=== PATIENT | male | born 2005 | race Caucasian/White ===

== ENCOUNTER 2025-03-03 08:50 | Emergency (ER) | payer OTHER ==
[~2025-03-03] VITALS: Ht 182.9 cm; Wt 124.0 kg
[2025-03-03 09:12] VITALS: TEMP 97.6
--- NOTE | 2025-03-03 09:13 | Physician Documentation ---
History of Present Illness ~ Chief Complaint: Laceration Stated Complaint: PARTIAL FINGER AMPUTATION Time Seen by MD: 09:16 HPI 20-year-old male presents with left middle finger pain after getting his finger caught in a Winch while at work today. States he has a partial amputation ,but bleeding is controlled Day of Onset: Mar 03, 2025 Medication Reconciliation Allergies: Coded Allergies: No Known Allergies (Unverified , 03/03/25) Scheduled Cephalexin*Monohydrate* (Keflex*), 1 CAP PO QID Scheduled PRN Hydrocodone Bit/Acetaminophen 5/325 MG (Livingston 5/325 MG), 1 TAB PO Q6H PRN for pain Review of Systems All Other Systems at this time: Reviewed and Negative ROS As stated above in the HPI, otherwise all systems are reviewed and negative. Physical Exam Physical Exam General: Alert, no apparent distress. Extremities: left distal 3rd phalange amputation. Neurologic: Oriented x4. Psychiatric: Normal mood and affect. Skin: Normal color, warm and dry. No edema, no ecchymosis. Procedures Laceration/Wound Repair Laceration : Anesthesia: Lidocaine Prep: irrigated by physician Repaired: skin Suture Size/Type: 4-0 Number of Superficial Sutures: 8 Procedure Note rounger, was use to snip exposed bone on left 3rd phalynx sutured and irrigated . tollerated well. Progress Results/Orders Results/Orders Orders - JOSE ALEJANDRO ESCALERA [employer] Finger(S) (03/03/25 09:32) Laceration/I&D Tray Set Up (03/03/25 ) Completed Orders - JOSE ALEJANDRO ESCALERA [employer] Finger(S) (03/03/25 09:32) Hydrocodone/Apap 10/325 (Livingston 10/325mg (03/03/25 09:30) Morphine 4mg/Ml Inj. (Morphine Inj.) (03/03/25 09:50) Lidocaine 1% 30ml Vial (Xylocaine 1% Via (03/03/25 09:49) Tetanus/Pertuss/Diph Acell/Pf (Boostrix (03/03/25 10:30) Medications Received in ER Medications (Trade) Dose Ordered Sig/Ashutosh Route PRN Reason Start Time Stop Time Status Last Admin Dose Admin (Livingston 10/325mg tab) 1 tab ONCE ONCE PO 03/03/25 09:30 03/03/25 09:31 DC 03/03/25 09:54 1 TAB (morphine inj.) 4 mg ONCE ONCE IM 03/03/25 09:50 03/03/25 09:52 DC 03/03/25 10:02 4 MG (Boostrix vaccine syringe) 0.5 ml ONCE ONCE IMVAC 03/03/25 10:30 03/03/25 10:31 DC 03/03/25 11:04 0.5 ML Vital Signs 03/03/25 03/03/25 09:12 11:36 Temp 97.6 Pulse 79 85 Resp 18 16 B/P (MAP) 147/88 139/71 Pulse Ox 100 98 Medical Decision Making Findings I spoke to Dr. Curtis the on-call hand specialist: New line he advised to snip what is left of the amputation and use the rales your to snip the external exposed bone. And then to loosely suture the tip of the finger. Going to discharge him on antibiotics and have him follow up with Dr. Curtis in the outpatient setting Differential Dx:Considerations: Include: Abrasion, Avulsion, Contusion, Laceration, Fracture, Hematoma, Neurovascular injury, Retained foreign body, Other Departure Disposition: 01 HOME / SELF CARE / HOMELESS Impression: Primary Impression: Amputated finger Condition: Stable Discharge Instructions: Laceration Care, Adult, [id number] Referrals: NO PRIMARY CARE PROVIDER (PCP) LEXX CURTIS Jr., MD Prescriptions Hydrocodone Bit/Acetaminophen 5/325 MG (Livingston 5/325 MG) 5 Mg/325 Mg Tablet 1 TAB PO Q6H PRN for pain, #14 TAB Prov: JOSE ALEJANDRO ESCALERA NP 03/03/25 Cephalexin*Monohydrate* (Keflex*) 500 Mg Capsule 1 CAP PO QID, #40 CAP Prov: JOSE ALEJANDRO ESCALERA NP 03/03/25 Education Educated: Patient Educated regarding: diagnosis Signature Scribe Signature: e Attestation: Scribed for Jose Alejandro Escalera [employer] Worker by Jose Alejandro Corrigan NP . 03/03/25 11:17 JOSE ALEJANDRO ESCALERA NP Mar 03, 2025 09:13
--- NOTE | 2025-03-03 09:49 | RADIOLOGY REPORT ---
DI FINGER(S), INDICATION: injury,LEFT TECHNICAL DATA: Frontal view of the left hand and lateral and oblique views of the left long finger were obtained. COMPARISON: None FINDINGS: There is amputation of the distal aspect of the long finger. Acute comminuted intra-articular fracture through the proximal most aspect of the 3rd distal phalanx and the distal tuft. The amputated fragment overlies the ring finger. There is a deformity of the 2nd distal phalanx which may be chronic. Soft tissue swelling noted in the long finger. IMPRESSION: 1. Amputation of the distal aspect of the long finger with comminuted intra- articular fracture of the 3rd distal phalanx and fracture through the 3rd distal tuft.
[2025-03-03] MEDS: HYDROcodone/acetaminophen 10/325mg tab PO ONE (09:54)
[2025-03-03] MEDS: morphine 4 MG/ML inj SYRINge IM ONE (10:02)
[2025-03-03] MEDS: LIDOcaine 1% 30ml preserv. free vial SQ STA (10:27)
[2025-03-03] MEDS: TETanus/Pertussis (Acell)/Diphther VAC/PF (Tdap-Adult) 0.5ml syringe IMVAC ONE (11:04)
[2025-03-03] MEDS ORDERED: HYDR-3965 PO (11:16)
[2025-03-03] MEDS ORDERED: CEPH-585 PO (11:16)
[2025-03-03 11:36] VITALS: BP 139/71; PULSE 85; RESP 16; O2SAT 98
== END 2025-03-03 11:47 | disposition home or self-care (01) ==
LOC: ER 08:51
DX: S61.213A Laceration without foreign body of left middle finger without damage to nail, initial encounter (principal); X58.XXXA Exposure to other specified factors, initial encounter; Y93.89 Activity, other specified; Y92.89 Other specified places as the place of occurrence of the external cause; Y99.8 Other external cause status
CPT/HCPCS: 12001; 73140; 90471; 90715; 96372; 99284; A6223; J2270; J7030; A6258